=== PATIENT | female | born 1990 | race African-American/Black ===

== ENCOUNTER 2016-06-24 23:43 | Emergency (ER) | payer MEDICAID, OTHER ==
[~2016-06-24 23:43] MED LIST: IBUP800 PO; PRENTAB72 PO; TERC45CR PV
[2016-06-25] MEDS ORDERED: SODIUM CHLORIDE 0.9% FLUSH 5 ML FLUSH IVF SCH (00:30)
[2016-06-25] MEDS ORDERED: SODIUM CHLORIDE 0.9% FLUSH 5 ML FLUSH IVF PRN (00:30)
[2016-06-25 00:56] LABS: BACTERIA, URINE RARE /hpf; BLOOD, URINE NEG (NEG); COMMENT (UR) CULTURE INDICATED; CULTURE IF INDICATED CULTURE INDICATED; GLUCOSE,URINE NEG (NEG); KETONE, URINE NEG (NEG); MUCUS URINE FEW /lpf (OCC); NITRITE,URINE NEG (NEG); PH, URINE 6.5 (5.0-8.5); RENAL EPITHELIAL CELLS <1 /hpf; SQUAMOUS EPITHELIAL CELL URINE 13 /hpf (0-5); TRANSITIONAL EPI CELLS, URINE <1 /hpf; URINE COLOR YELLOW (YELLW/STRAW)
--- NOTE | 2016-06-25 00:58 | PD ---
HPI Chief Complaint Lower back pain, cramping, pelvic pressure Date Seen: Jun 25, 2016 Time Seen: 00:40 Travel History International Travel<30 Days: No Contact w/Intl Traveler<30Days: No Known Affected Area: No History of Present Illness HPI 25-year-old 001 at 31 weeks and 5 days of gestation, EDC 08/22/16, patient presented to OB ED with complaints of lower back pain, cramping, pelvic pressure. Patient denies leakage of fluid, contractions, vaginal bleeding. She reports presence of movements. care is with Dr. Ba. course is significant for anemia. Evaluation shows patient has vaginal discharge, sample is sent for wet prep profile, fibronectin was also collected. Occasional contractions noted. Para: 1 : 2 Miscarriage: 0 : 0 History Past Medical History Narrative Medical Significant for anemia and asthma Obstetric History Obstetric History Spontaneous vaginal delivery times one Past Surgical History Narrative Surgical Denies Surgical History: No Previous Surgery Family History Narrative Family History Maternal grandmother has hypertension Social History Alcohol Use: No Tobacco Use: No Substance Abuse: No Allergies-Medications (Allergen,Severity, Reaction): Coded Allergies: No Known Allergies (Unverified , 03/22/12) Home Meds Reported Medications Ibuprofen (Motrin 800 Mg Tab)800 Mg [id number] Mg PO Q8HPRN #30 03/25/12 Terconazole (Terazol 7)0.4 % Cr1 Appl PV HS 7 Days 03/22/12 Vit W/ Ferrous Fumara () Tab1 Po 03/22/12 Review of Systems Except as stated in HPI: all other systems reviewed are Neg Genitourinary: Discharge, Other (cramping) Musculoskeletal: Cramping, Other (back pain) Physical Exam Narrative GENERAL: Well-nourished, well-developed patient. SKIN: Warm and dry. HEAD: Normocephalic and atraumatic. EYES: No scleral icterus. No injection or drainage. ENT: No nasal drainage noted. Mucous membranes pink. Airway patent. NECK: Supple, trachea midline. No JVD. CARDIOVASCULAR: Regular rate and rhythm without murmurs, gallops, or rubs. RESPIRATORY: Breath sounds equal bilaterally. No accessory muscle use. BREASTS: Bilateral exam showed no masses , no retractions, no nipple discharge. ABDOMEN/GI: Abdomen soft, gravid, non-tender, bowel sounds present, no rebound, no guarding Gravid to 32 weeks size Fundal Height: 32 cm GENITOURINARY: External Genitalia: intact and normal in appearance BUS glands: Normal Cervix: Close, long, posterior Dilatation: Closed Effacement: 30% Station: -3 Presentation: Cephalic Membranes: Intact Uterine Contractions: Occasional FHT's: Category: one Baseline: 150s Reactive: Yes Variability: Moderate Decels: None EXTREMITIES: No cyanosis or edema. BACK: Nontender without obvious deformity. No CVA tenderness. NEUROLOGICAL: Awake and alert. Motor and sensory grossly within normal limits. Five out of 5 muscle strength in all muscle groups. Normal speech. Data Data Vital Signs Reviewed: Yes Orders Diet Npo (06/25/16 Breakfast) Vital Signs (Adult) JARVIS.[id number] AWAKE (06/25/16 00:17) ^ Heart (06/25/16 00:17) Activity Oob Ad Elvi (06/25/16 00:17) Urinalysis - C+S If Indicated (06/25/16 00:17) Sodium Chloride 0.9% Flush (Ns Flush) (06/25/16 00:30) Sodium Chloride 0.9% Flush (Ns Flush) (06/25/16 00:30) Ob/Psych Drug Screen, Urine (06/25/16 00:17) Fibronectin (06/25/16 00:17) Wet Prep Profile (06/25/16 00:17) MDM Medical Record Reviewed: Yes Diagnosis Diagnosis: Primary Impression: 31 weeks gestation of Additional Impressions: Vaginal discharge during in third trimester UTI (urinary tract infection) Qualified Code: N30.00 - Acute cystitis without hematuria uterine contractions in third trimester, antepartum Disposition: 01 DISCHARGE HOME Condition: Stable Patient Instructions: Early Labor Signs (ED), General Instructions, Labor (ED) Additional Instructions: Patient with positive fibronectin test, cervix is closed, contractions is resolved with oral hydration. Patient has Urinary tract infection. She is given prescription for Macrobid 100 mg orally twice a day for 7 days and encouraged to drink plenty of fluids. She is instructed to return to labor and delivery if increased symptoms, cramping, contractions, leakage of fluids, vaginal bleeding or decreased movement. Drink plenty of fluids. Monitor kick counts. Keep office appointment as scheduled. Pelvic rest nothing in the vagina. Departure Forms: Tests/Procedures Paxton Jarvis MD Jun 25, 2016 00:58
[2016-06-25 01:02] LABS: AMPHETAMINE, URINE NEG (NEG); BARBITURATES, URINE NEG (NEG); COCAINE, URINE NEG (NEG)
[2016-07-01 10:09] LABS: BATH SALTS (MDPV) UR NEG (NEG); ECSTASY (MDMA) UR NEG (NEG); HEROIN (6-ACETYLMORPHINE) UR NEG (NEG); K2 SPICE UR NEG (NEG); OBMETHADONE UR NEG (NEG); OXYCODONE (PERCODAN) NEG (NEG); PHENCYCLIDINE URINE NEG (NEG)
== END 2016-06-25 01:25 | disposition home or self-care (01) ==
LOC: HOBED 23:43
DX: O23.13 Infections of bladder in pregnancy, third trimester (principal); B96.89 Other specified bacterial agents as the cause of diseases classified elsewhere; Z3A.31 31 weeks gestation of pregnancy
CPT/HCPCS: 59025; 80307; 81001; 82731; 87086; 87210; 99284; G0481

== ENCOUNTER → 2016-07-01 | Outpatient (CLI) | payer MEDICAID ==
[~2016-07-01] MED LIST changes: +ACYC400T PO; +BETAMETHASONE SOD PHOS/ACETATE SUSP 30 MG/5 ML VIAL IM SCH; +FERR1TAB36 PO; +IBUP-232 PO; +OXYC1TAB63 PO
== END ==
LOC: HOBG 14:10
PROVIDERS: ATTEND Obstetrics & Gynecology
DX: O09.292 Supervision of pregnancy with other poor reproductive or obstetric history, second trimester (principal); Z3A.00 Weeks of gestation of pregnancy not specified
CPT/HCPCS: 96372; J0702

== ENCOUNTER → 2016-07-02 | Outpatient (CLI) | payer MEDICAID | LOC: HOBG 14:19 | PROVIDERS: ATTEND Obstetrics & Gynecology | DX: O09.292 Supervision of pregnancy with other poor reproductive or obstetric history, second trimester (principal); A52.76 Other genitourinary symptomatic late syphilis | CPT/HCPCS: 96372; J0702 ==

== ENCOUNTER 2016-07-11 12:05 | Emergency (ER) | payer MEDICAID ==
[~2016-07-11 12:05] MED LIST changes: -ACYC400T PO; -BETAMETHASONE SOD PHOS/ACETATE SUSP 30 MG/5 ML VIAL IM SCH; -FERR1TAB36 PO; -IBUP-232 PO; -OXYC1TAB63 PO
[2016-07-11] MEDS: LACTATED RINGER'S 1000 ML INJ 1,000 ML IV SCH ×2 (13:45→14:29)
[2016-07-11 14:07] LABS: AUTOMATED NEUTROPHIL # 6.1 TH/MM3 (1.8-7.7); BASOPHIL % 0.3 % (0.0-2.0); EOSINOPHIL # 0.1 TH/MM3 (0-0.4); EOSINOPHIL % 0.9 % (0.0-4.0); HEMATOCRIT 31.3 % (35.0-46.0); LYMPH % 20.7 % (9.0-44.0); LYMPHOCYTE # 1.7 TH/MM3 (1.0-4.8); MEAN CELL VOLUME 62.1 FL (80.0-100.0); MEAN CORPUSCULAR HEMOGLOBIN 19.3 PG (27.0-34.0); NEUT % 72.1 % (16.0-70.0); PLATELET COUNT 285 TH/MM3 (150-450); RED BLOOD COUNT 5.04 MIL/MM3 (4.00-5.30); RED CELL DISTRIBUTION WIDTH 28.3 % (11.6-17.2); WHITE BLOOD COUNT 8.4 TH/MM3 (4.0-11.0)
[2016-07-11 14:08] LABS: HEMO FLAGS AUTO DIFF
[2016-07-11 14:19] LABS: ANION GAP 10 MEQ/L (5-15); AST (GOT) 18 U/L (15-37); BICARBONATE 23.4 MEQ/L (21.0-32.0); BLOOD UREA NITROGEN 6 MG/DL (7-18); CHLORIDE 103 MEQ/L (98-107); GLOMERULAR FILTRATION RATE 154 ML/MIN (>89); POTASSIUM 3.6 MEQ/L (3.5-5.1); SODIUM (NA) 136 MEQ/L (136-145)
[2016-07-11 14:22] LABS: ALKALINE PHOSPHATASE 92 U/L (45-117); ALT (GPT) 16 U/L (10-53); TOTAL BILIRUBIN ADULT 0.4 MG/DL (0.2-1.0)
--- NOTE | 2016-07-11 14:33 | PD ---
HPI Chief Complaint Syncope 2 in the doctor's office Date Seen: Jul 11, 2016 Time Seen: 14:10 Travel History International Travel<30 Days: No Contact w/Intl Traveler<30Days: No Known Affected Area: No History of Present Illness HPI 25-year-old 001 at 33 weeks and 6 days of gestation, EDC 08/22/16, patient presented to OB ED from the doctor's office, patient was seen Dr. Juares office today where she passed out ,patient stated that she had syncope and loss of consciousness twice and she was therefore sent to OB ED for evaluation. Patient stated that she is now okay, she denies dizziness, lightheadedness, nausea, vomiting, fever and chills. She denies shortness of breath and chest pain. Patient denies cramping, contractions, leakage of fluids , vaginal bleeding and decreased movements. course is significant for anemia and episode of labor this . She is status post betamethasone 2 doses for lung maturity, fibronectin was positive during last visit Para: 1 : 2 Miscarriage: 0 : 0 History Past Medical History Narrative Medical Significant for anemia and asthma Obstetric History Obstetric History Spontaneous vaginal delivery times one Past Surgical History Narrative Surgical Denies Surgical History: No Previous Surgery Family History Narrative Family History Maternal grandmother has hypertension Social History Alcohol Use: No Tobacco Use: No Substance Abuse: No Allergies-Medications (Allergen,Severity, Reaction): Coded Allergies: No Known Allergies (Unverified , 03/22/12) Home Meds Reported Medications Ibuprofen (Motrin 800 Mg Tab)800 Mg [id number] Mg PO Q8HPRN #30 03/25/12 Terconazole (Terazol 7)0.4 % Cr1 Appl PV HS 7 Days 03/22/12 Vit W/ Ferrous Fumara () Tab1 Po 03/22/12 Review of Systems Except as stated in HPI: all other systems reviewed are Neg Cardiovascular: Syncope (syncope 2) Genitourinary: Other () Physical Exam Narrative GENERAL: Well-nourished, well-developed patient. SKIN: Warm and dry. HEAD: Normocephalic and atraumatic. EYES: No scleral icterus. No injection or drainage. ENT: No nasal drainage noted. Mucous membranes pink. Airway patent. NECK: Supple, trachea midline. No JVD. CARDIOVASCULAR: Regular rate and rhythm without murmurs, gallops, or rubs. RESPIRATORY: Breath sounds equal bilaterally. No accessory muscle use. BREASTS: Bilateral exam showed no masses , no retractions, no nipple discharge. ABDOMEN/GI: Abdomen soft, gravid, non-tender, bowel sounds present, no rebound, no guarding Gravid to 34 weeks size Fundal Height: 34 cm GENITOURINARY: External Genitalia: intact and normal in appearance BUS glands: Normal Cervix: Closed, long posterior Dilatation: Closed Effacement: 30% Station: -3 Presentation: Cephalic Membranes: Intact Uterine Contractions: None FHT's: Category: one Baseline: 140s Reactive: Yes Variability: Moderate Decels: none EXTREMITIES: No cyanosis or edema. BACK: Nontender without obvious deformity. No CVA tenderness. NEUROLOGICAL: Awake and alert. Motor and sensory grossly within normal limits. Five out of 5 muscle strength in all muscle groups. Normal speech. Data Data Vital Signs Reviewed: Yes Orders Vital Signs (Adult) .ON ADMISSION (07/11/16 13:55) ^ Labor Status (07/11/16 13:55) Urinalysis - C+S If Indicated (07/11/16 13:55) ^ Non Stress Test (07/11/16 13:55) Diet Regular Basic (07/11/16 Lunch) Comprehensive Metabolic Panel (07/11/16 13:55) Lactated Ringer's 1000 Ml Inj (Lr 1000 M (07/11/16 15:00) Complete Blood Count With Diff (07/11/16 13:55) Labs Laboratory Tests Test 07/11/16 13:45 White Blood Count 8.4 Red Blood Count 5.04 Hemoglobin 9.7 Hematocrit 31.3 Mean Corpuscular Volume 62.1 Mean Corpuscular Hemoglobin 19.3 Mean Corpuscular Hemoglobin 31.0 Concent Red Cell Distribution Width 28.3 Platelet Count 285 Mean Platelet Volume 8.5 Neutrophils (%) (Auto) 72.1 Lymphocytes (%) (Auto) 20.7 Monocytes (%) (Auto) 6.0 Eosinophils (%) (Auto) 0.9 Basophils (%) (Auto) 0.3 Neutrophils # (Auto) 6.1 Lymphocytes # (Auto) 1.7 Monocytes # (Auto) 0.5 Eosinophils # (Auto) 0.1 Basophils # (Auto) 0.0 CBC Comment AUTO DIFF MDM Medical Record Reviewed: Yes Diagnosis Diagnosis: Primary Impression: 34 weeks gestation of Additional Impression: Syncope Qualified Code: R55 - Vasovagal syncope Disposition: 01 DISCHARGE HOME Condition: Stable Patient Instructions: General Instructions Additional Instructions: Patient given IV hydration after which she doing very well, patient is instructed to return to labor and delivery if increased symptoms, cramping, vaginal bleeding, contractions, or leakage of fluids or decreased movements. Drink plenty of fluids. Monitor kick counts. Keep office appointment as scheduled. Paxton Jarvis MD Jul 11, 2016 14:33
[2016-07-11 14:37] LABS: KERATOCYTES OCC (NORMAL); PLATELET ESTIMATE SMEAR NORMAL (NORMAL); PLATELET MORPHOLOGY NORMAL (NORMAL); SCAN/DIFF AUTO DIFF CONFIRMED
[2016-07-11 15:19] LABS: BACTERIA, URINE RARE /hpf; BLOOD, URINE NEG (NEG); COMMENT (UR) CULT NOT INDICATED; CULTURE IF INDICATED CULT NOT INDICATED; GLUCOSE,URINE NEG (NEG); KETONE, URINE NEG (NEG); MUCUS URINE MOD /lpf (OCC); NITRITE,URINE NEG (NEG); SQUAMOUS EPITHELIAL CELL URINE 2 /hpf (0-5); URINE COLOR YELLOW (YELLW/STRAW)
== END 2016-07-11 16:07 | disposition home or self-care (01) ==
LOC: HOBED 12:05
DX: O26.893 Other specified pregnancy related conditions, third trimester (principal); R55 Syncope and collapse; O99.013 Anemia complicating pregnancy, third trimester; D64.9 Anemia, unspecified; Z87.09 Personal history of other diseases of the respiratory system; Z3A.34 34 weeks gestation of pregnancy
CPT/HCPCS: 59025; 80053; 81001; 85025; 96360; 96361; 99284; J7120

== ENCOUNTER 2016-08-02 10:09 | Emergency (ER) | payer MEDICAID ==
--- NOTE | 2016-08-02 10:42 | PD ---
HPI Chief Complaint Contractions Date Seen: Aug 02, 2016 Travel History International Travel<30 Days: No Contact w/Intl Traveler<30Days: No Known Affected Area: No History of Present Illness HPI This patient is a 25-year-old black female 37 weeks gestation followed up [facility] for OB care presents now with combining of contraction pain mainly last night and now still having contractions she doesn't know how close together they are. She denies bleeding or rupture the membranes. Baby's heart rate tracing is reactive and she is scott. Para: 1 : 2 History Obstetric History Obstetric History One vaginal delivery Social History Alcohol Use: No Tobacco Use: No Substance Abuse: No Allergies-Medications (Allergen,Severity, Reaction): Coded Allergies: No Known Allergies (Unverified , 03/22/12) Home Meds Reported Medications Ibuprofen (Motrin 800 Mg Tab)800 Mg [id number] Mg PO Q8HPRN #30 03/25/12 Terconazole (Terazol 7)0.4 % Cr1 Appl PV HS 7 Days 03/22/12 Vit W/ Ferrous Fumara () Tab1 Po 03/22/12 Review of Systems General / Constitutional: No: Fever, Weight Gain, Chills, Other Eyes: No: Diploplia, Blurred Vision, Visual changes, Pain, Photophobia HENT: No: Headaches, Vertigo, Lightheadedness Cardiovascular: No: Irregular Rhythm, Chest Pain or Discomfort, Palpitations, Tachycardia, Syncope, Varicosities, Edema, Cyanosis Respiratory: No: Cough, Short of Breath, Other Gastrointestinal: No: Nausea, Vomiting, Diarrhea Genitourinary: No: Decreased Urinary Output, Oliguria Musculoskeletal: No: Limited ROM, Weakness, Cramping, Edema, Pain Skin: No Rash, No Itching, No Dryness, No Lumps, No Change in Pigmentation, No Change in Nails, No Alopecia, No Lesions Neurologic: No: Weakness, Dizziness, Syncope, Focal Abnormalities, Coordination Problem, Headache, Slurred Speech, Seizures Psychiatric: No: Depression, Suicidal Ideations, Homicidal Ideation Endocrine: No: Heat Intolerance, Cold Intolerance, Polydipsia, Polyuria, Other Physical Exam Narrative GENERAL: Well-nourished, well-developed patient. SKIN: Warm and dry. HEAD: Normocephalic and atraumatic. EYES: No scleral icterus. No injection or drainage. ENT: No nasal drainage noted. Mucous membranes pink. Airway patent. NECK: Supple, trachea midline. No JVD. CARDIOVASCULAR: Regular rate and rhythm without murmurs, gallops, or rubs. RESPIRATORY: Breath sounds equal bilaterally. No accessory muscle use. BREASTS: Bilateral exam showed no masses , no retractions, no nipple discharge. ABDOMEN/GI: Abdomen soft, non-tender, bowel sounds present, no rebound, no guarding Gravid to [-36] weeks size Fundal Height: [-36] GENITOURINARY: External Genitalia: intact and normal in appearance BUS glands: [-] Cervix: [-] Dilatation: [1-] Effacement: [20-] Station: [-3] Presentation: [-vtx] Membranes: [intact ] Uterine Contractions: [-Irregular] FHT's: Category: [1-] Baseline: [-144] Reactive: [yes-] Variability: [-mod] Decels: [-none] EXTREMITIES: No cyanosis or edema. BACK: Nontender without obvious deformity. No CVA tenderness. NEUROLOGICAL: Awake and alert. Motor and sensory grossly within normal limits. Five out of 5 muscle strength in all muscle groups. Normal speech. MDM Interpretation(s) This patient is 25-year-old black female at 37 weeks presents with contractions. She saw Dr. Chaves for care. She denies bleeding or ruptured membranes. Baby heart rate tracing is reactive and she is scott somewhat better. However the patient's cervix is 1 cm thick and high with vertex presentation area to offer the patient pain shot for relief of Demerol 50 /25 of Phenergan IM if she wants that she certainly can have it later home to rest return for increasing pain bleeding or rupture the membranes. Plan Plan to discharge patient home after adequate observation here she's given some oral hydration she's continued at home given IM pain medication for relief and sedation today. She will follow-up with her OB provider or return here for worsening symptoms Diagnosis Diagnosis: Primary Impression: False labor at or after 37 completed weeks of gestation Disposition: 01 DISCHARGE HOME Condition: Stable Elio Dumont II, MD Aug 02, 2016 10:42
[2016-08-02] MEDS ORDERED: PROMETHAZINE INJ 25 MG/ML VIAL IM ONE (10:45)
[2016-08-02] MEDS ORDERED: MEPERIDINE HCL 50 MG/ML VIAL IM ONE (10:45)
== END 2016-08-02 11:12 | disposition home or self-care (01) ==
LOC: HOBED 10:09
DX: O47.1 False labor at or after 37 completed weeks of gestation (principal); Z3A.37 37 weeks gestation of pregnancy
CPT/HCPCS: 59025; 96372; 99284; J2175; J2550

== ENCOUNTER 2016-08-23 00:13 | Inpatient (IN) | payer MEDICAID ==
[2016-08-23] VITALS (101 sets, daily range): BP systolic 95–153; BP diastolic 43–109; PULSE 46–154; RESP 1–20; TEMP 97.4–99.1
[~2016-08-23] VITALS: Ht 175.3 cm; Wt 81.6 kg
[2016-08-23] MEDS ORDERED: LACTATED RINGER'S 1000 ML INJ 1,000 ML IV PRN (00:39)
--- NOTE | 2016-08-23 00:39 | PD ---
HPI Chief Complaint Contractions for the past 2-1/2 hours some mucousy discharge Date Seen: Aug 23, 2016 Time Seen: 00:34 Travel History International Travel<30 Days: No Contact w/Intl Traveler<30Days: No Known Affected Area: No History of Present Illness HPI 25-year-old female who is at 40 weeks gestation comes in today complaining of discharge that appeared to be watery mucus as well as contractions for the past 2-1/2-3 hours. Patient was noted to be GBS positive there was performed July 24, 2016. 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 Past Surgical History Surgical History: No Previous Surgery Family History Family History: Negative Social History Alcohol Use: No Tobacco Use: No Substance Abuse: No Allergies-Medications (Allergen,Severity, Reaction): Coded Allergies: No Known Allergies (Unverified , 08/02/16) Home Meds Reported Medications Ibuprofen (Motrin 800 Mg Tab)800 Mg [id number] Mg PO Q8HPRN #30 03/25/12 Terconazole (Terazol 7)0.4 % Cr1 Appl PV HS 7 Days 03/22/12 Vit W/ Ferrous Fumara () Tab1 Po 03/22/12 Review of Systems Except as stated in HPI: all other systems reviewed are Neg Physical Exam Narrative GENERAL: Well-nourished, well-developed patient. SKIN: Warm and dry. HEAD: Normocephalic and atraumatic. EYES: No scleral icterus. No injection or drainage. ENT: No nasal drainage noted. Mucous membranes pink. Airway patent. NECK: Supple, trachea midline. No JVD. CARDIOVASCULAR: Regular rate and rhythm without murmurs, gallops, or rubs. RESPIRATORY: Breath sounds equal bilaterally. No accessory muscle use. BREASTS: Bilateral exam showed no masses , no retractions, no nipple discharge. ABDOMEN/GI: Abdomen soft, non-tender, bowel sounds present, no rebound, no guarding Gravid to [-] weeks size Fundal Height: [-40] GENITOURINARY: External Genitalia: intact and normal in appearance BUS glands: [Normal-] Cervix: [-Mid position] Dilatation: [-4-5] Effacement: [50-] Station: [-2-] Presentation: [-Vertex] Membranes: [intact] amnisure negative Uterine Contractions: [-Every 5-7 minutes] FHT's: Category: [-1] Baseline: [-140] Reactive: [Moderate-] Variability: [-] Accelerations present Decels: [-] Absent EXTREMITIES: No cyanosis or edema. BACK: Nontender without obvious deformity. No CVA tenderness. NEUROLOGICAL: Awake and alert. Motor and sensory grossly within normal limits. Five out of 5 muscle strength in all muscle groups. Normal speech. Data Data Vital Signs Reviewed: Yes MDM Plan at 40 weeks gestation in labor plan admission with GBS prophylaxis Diagnosis Diagnosis: Primary Impression: Irregular uterine contractions Additional Impression: 40 weeks gestation of Fern Jones MD Aug 23, 2016 00:39
[2016-08-23] MEDS ORDERED: LIDOCAINE HCL 1% 50 ML VIAL INFIL PRN (00:45)
[2016-08-23] MEDS ORDERED: PENICILLIN G POTASSIUM INJ 5,000,000 UNITS in SODIUM CHLORIDE 0.9% INJ 100 ML IV ONE (00:45)
[2016-08-23] MEDS ORDERED: CITRIC ACID-SODIUM CITRATE LIQ 30 ML UDC PO SCH (00:45)
[2016-08-23] MEDS ORDERED: OXYTOCIN 30 UNITS-500ML PREMIX 500 ML IV ONE ×2 (00:45→11:45)
[2016-08-23] MEDS ORDERED: LIDOCAINE HCL 1% 50 ML VIAL I-DERMAL PRN (00:45)
[2016-08-23] MEDS ORDERED: MINERAL OIL 10 ML VIAL TOPICAL PRN (00:45)
[2016-08-23] MEDS ORDERED: SODIUM CHLORID 0.9% 500 ML INJ 500 ML IV PRN (00:45)
[2016-08-23] MEDS ORDERED: SODIUM CHLOR 0.9% 1000 ML INJ 1,000 ML IV PRN (00:59)
[2016-08-23 01:16] LABS: BLOOD, URINE SMALL (NEG); COMMENT (UR) CULTURE INDICATED; CULTURE IF INDICATED CULTURE INDICATED; GLUCOSE,URINE NEG (NEG); HYALINE CAST, URINE 1 /lpf (RARE); KETONE, URINE NEG (NEG); MUCUS URINE FEW /lpf (OCC); NITRITE,URINE NEG (NEG); PH, URINE 6.5 (5.0-8.5); SQUAMOUS EPITHELIAL CELL URINE 8 /hpf (0-5); URINE COLOR YELLOW (YELLW/STRAW)
[2016-08-23 01:21] LABS: AUTOMATED NEUTROPHIL # 6.3 TH/MM3 (1.8-7.7); BASOPHIL % 0.5 % (0.0-2.0); EOSINOPHIL # 0.1 TH/MM3 (0-0.4); EOSINOPHIL % 1.2 % (0.0-4.0); HEMATOCRIT 32.4 % (35.0-46.0); LYMPH % 30.1 % (9.0-44.0); MEAN CELL VOLUME 63.9 FL (80.0-100.0); MEAN CORPUSCULAR HEMOGLOBIN 19.5 PG (27.0-34.0); MEAN CORPUSCULAR HGB CONC 30.5 % (32.0-36.0); MONO % 5.9 % (0.0-8.0); NEUT % 62.3 % (16.0-70.0); PLATELET COUNT 173 TH/MM3 (150-450); RED BLOOD COUNT 5.06 MIL/MM3 (4.00-5.30); RED CELL DISTRIBUTION WIDTH 25.6 % (11.6-17.2); WHITE BLOOD COUNT 10.1 TH/MM3 (4.0-11.0)
[2016-08-23 01:24] LABS: HEMO FLAGS AUTO DIFF
[2016-08-23] MEDS ORDERED: fentaNYL 2MCG-BUPIV 0.125% INJ 100 ML ONE ×2 (01:42→09:56)
[2016-08-23] MEDS ORDERED: FERR1TAB36 PO (01:45)
[2016-08-23] MEDS ORDERED: ACYC400T PO (01:47)
[2016-08-23 02:58] LABS: PLATELET ESTIMATE SMEAR NORMAL (NORMAL); PLATELET MORPHOLOGY NORMAL (NORMAL); SCAN/DIFF AUTO DIFF CONFIRMED
[2016-08-23] MEDS: LACTATED RINGER'S 1000 ML INJ 1,000 ML IV SCH ×2 (06:08→08:39)
[2016-08-23] MEDS: PENICILLIN G POTASSIUM INJ 2,500,000 UNITS in SODIUM CHLORIDE 0.9% INJ 100 ML IV SCH ×2 (06:09→10:03)
--- NOTE | 2016-08-23 11:39 | PD.OB.DELI ---
Delivery Date: Aug 23, 2016 Anesthesia: Epidural Episiotomy: None, Midline Vaginal Delivery: Normal Presentation: Occiput anterior Nuchal Cord: None Delayed cord clamping (45 sec): Yes Shoulder Dystocia: Julianne maneuver done Infant: Female One Minute : 8 Five Minute : 9 Weight: 8/6 Infant Care: Spontaneous crying, Responded to stimulation Placenta: Spontaneous delivery, Intact, Uterus explored +, 3 vessel cord Laceration: Vaginal laceration, Perineal laceration, 1 deg Repair: Vicryl running Callie Harris MD Aug 23, 2016 11:39
[2016-08-23] MEDS ORDERED: WITCH HAZEL 50%/GLYCERIN 12.5% 40 PAD JAR TOPICAL PRN (11:45)
[2016-08-23] MEDS ORDERED: ZOLPIDEM TARTRATE 5 MG TAB PO PRN (11:45)
[2016-08-23] MEDS ORDERED: ACETAMINOPHEN 325 MG TAB PO PRN (11:45)
[2016-08-23] MEDS ORDERED: oxyCODONE/ACETAMINOPHEN 5 MG/325 MG TAB PO PRN (11:45)
[2016-08-23] MEDS ORDERED: ONDANSETRON ODT 4 MG TAB PO PRN (11:45)
[2016-08-23] MEDS ORDERED: ALUMINUM/MAGNESIUM/SIMETH 30 ML CUP PO PRN (11:45)
[2016-08-23] MEDS ORDERED: DOCUSATE SODIUM 50 MG/SENNA 8.6 MG TAB PO PRN (11:45)
[2016-08-23] MEDS ORDERED: SODIUM CHLORIDE 0.9% FLUSH 5 ML FLUSH IV PRN (11:45)
[2016-08-23] MEDS ORDERED: BENZOCAINE 20% TOPICAL SPRAY 60 ML CAN TOPICAL PRN (11:45)
[2016-08-23] MEDS ORDERED: NO SYSTEM NARCOTICS XX PRN (13:00)
[2016-08-23] MEDS ORDERED: DO NOT ADMINISTER ANTICOAGULANTS XX PRN (13:00)
[2016-08-23] MEDS ORDERED: fentaNYL 2MCG-BUPIV 0.125% 100 ML EPIDURAL SCH (13:00)
[2016-08-23] MEDS ORDERED: ePHEDrine/NS 25 MG/5 ML SYR IV PRN (13:00)
[2016-08-23] MEDS: IBUPROFEN 600 MG TAB PO PRN ×2 (15:27→21:24)
[2016-08-23] MEDS ORDERED: MEASLES, MUMPS, RUBELLA VACCINE 0.5 ML VIAL SQ ONE (16:00)
[2016-08-23] MEDS ORDERED: DIPHTH/TETANUS/ACEL PERTUSSIS (BOOSTER) 0.5 ML VIAL/PFS IM ONE (16:00)
[2016-08-23] MEDS: oxyCODONE/ACETAMINOPHEN 5 MG/325 MG TAB PO PRN ×2 (16:25→21:24)
[2016-08-23] MEDS ORDERED: SODIUM CHLORIDE 0.9% FLUSH 5 ML FLUSH IV SCH (21:00)
[2016-08-24] MEDS ORDERED: ACYCLOVIR 200 MG CAP PO SCH (09:00)
[2016-08-24 09:29] VITALS: BP 110/77; PULSE 85; RESP 16; TEMP 98.6
[2016-08-24] MEDS: oxyCODONE/ACETAMINOPHEN 5 MG/325 MG TAB PO PRN ×2 (09:50→16:02)
[2016-08-24] MEDS: IBUPROFEN 600 MG TAB PO PRN ×2 (09:50→16:01)
[2016-08-24 11:15] VITALS: RESP 16
--- NOTE | 2016-08-24 15:27 | HHI.OB ---
Subjective Post Day: 1 Remarks doing well, pain is well controlled. Bleeding is light. Objective Vitals/I&O Vital Signs Date Time Temp Pulse Resp B/P Pulse Ox O2 Delivery O2 Flow Rate FiO2 08/24/16 11:15 16 08/24/16 11:15 16 08/24/16 09:29 98.6 85 16 110/77 08/23/16 20:30 98.4 08/23/16 20:30 79 18 115/67 Objective Remarks GENERAL: Well-nourished, well-developed patient. CARDIOVASCULAR: Regular rate and rhythm without murmurs, gallops, or rubs. RESPIRATORY: Breath sounds equal bilaterally. No accessory muscle use. ABDOMEN/GI: Abdomen soft, non-tender. Fundus: Firm, non-tender at umbilicus. GENITOURINARY: Light to moderate bleeding. EXTREMITIES: No cyanosis or edema, non-tender, without signs of DVT. Medications and IVs Current Medications Medications (Trade) Dose Ordered Sig/Chau Route Start Time Stop Time Status Last Admin (NS Flush) 2 ml BID IV 08/23/16 21:00 (NS Flush) 2 ml UNSCH PRN IV 08/23/16 11:45 (Tylenol) 650 mg Q4H PRN PO 08/23/16 11:45 (Motrin) 600 mg Q6H PRN PO 08/23/16 11:45 08/24/16 09:50 (Percocet 5-325 Mg) 1 tab Q4H PRN PO 08/23/16 11:45 08/24/16 09:50 (Percocet 5-325 Mg) 2 tab Q4H PRN PO 08/23/16 11:45 (Americaine 20% Top Spr) 1 spray Q4H PRN TOPICAL 08/23/16 11:45 (Tucks Pads) 1 applic QID PRN TOPICAL 08/23/16 11:45 (Pepper-Colace) 2 tab Q12H PRN PO 08/23/16 11:45 (Ambien) 5 mg HS PRN PO 08/23/16 11:45 (Mag-Al Plus Susp Liq) 15 ml Q8H PRN PO 08/23/16 11:45 (Zofran Odt) 4 mg Q6H PRN PO 08/23/16 11:45 Acyclovir 400 mg 400 mg DAILY PO 08/24/16 09:00 08/24/16 09:50 (fentaNYL 2MCG-BUPIV 0.125% INJ) 100 ml @ 0 mls/hr TITRATE EPIDURAL 08/23/16 13:00 Assessment/Plan Assessment and Plan PPD #1 Doing well Ready to go home Callie Harris MD Aug 24, 2016 15:26
[2016-08-24] MEDS ORDERED: OXYC1TAB63 PO (16:09)
[2016-08-24] MEDS ORDERED: IBUP-232 PO (16:09)
--- NOTE | 2016-08-24 16:10 | HHI.DCPOC ---
Discharge Care Plan Report Symptoms to Your Doctor -Temperate above 100.5 degrees -Redness, of incision or excessive or foul smelling drainage -Unusual pain or calf pain -Increased vaginal bleeding -Painful or difficulty urinating -Feelings of extreme sadness or anxiety after 2 weeks Goals to Promote Your Health * To prevent worsening of your condition and complications * To maintain your health at the optimal level Directions to Meet Your Goals Take your medications as prescribed Follow your dietary instruction Follow activity as directed Ensure plenty of rest for recovery Drink fluids for hydration Keep your appointments as scheduled Take your immunizations and boosters as scheduled If your symptoms worsen call your PCP, if no PCP go to Urgent Care Center or Emergency Room Smoking is Dangerous to Your Health. Avoid second hand smoke Call the 24-hour crisis hotline for domestic abuse at Callie Harris MD Aug 24, 2016 16:10
== END 2016-08-24 17:56 | disposition home or self-care (01) | DRG 775 ==
LOC: HOBED 00:13 → H2EB 00:35 → H1EA 14:52
PROVIDERS: ADMIT Obstetrics & Gynecology; ATTEND Obstetrics & Gynecology
PROC: 10E0XZZ Delivery of Products of Conception, External Approach (ICD-10-PCS; principal; 2016-08-23)
PROC: 0UQGXZZ Repair Vagina, External Approach (ICD-10-PCS; 2016-08-23)
PROC: 0W8NXZZ Division of Female Perineum, External Approach (ICD-10-PCS; 2016-08-23)
PROC: 00HU33Z Insertion of Infusion Device into Spinal Canal, Percutaneous Approach (ICD-10-PCS; 2016-08-23)
PROC: 3E0R3CZ (ICD-10-PCS; 2016-08-23)
DX: O99.824 Streptococcus B carrier state complicating childbirth (principal); Z37.0 Single live birth; Z3A.40 40 weeks gestation of pregnancy; O66.0 Obstructed labor due to shoulder dystocia; O71.4 Obstetric high vaginal laceration alone
CPT/HCPCS: 81001; 85025; 86900; 86901; 87086; 90715; 99285; J2540; J3010; J7120